=== PATIENT | female | born 1985 | race Two or more races ===

== ENCOUNTER → 2025-01-19 | Outpatient (CLI) | payer OTHER, SELFPAY ==
--- NOTE | 2025-01-19 10:30 | XR_ITS ---
Examination: Screening digital mammography, bilateral Computer aided detection 3-D breast Tomosynthesis, bilateral Date and time of exam: January 19, 2025 at 1015 hours Compared to mammograms dating to December 29, 2019 Indication: Screening Technique: Nonmagnified MLO, CC views of the breasts to been obtained, reconstructed from 3-D Tomosynthesis images. R2 computer aided detection program utilized for evaluation of suspicious masses and/or abnormal calcifications. 3-D Tomosynthesis images obtained. Findings: The breasts are heterogeneously dense, which may obscure small masses Circumscribed 28 mm 31 mm nodules upper outer left breast which may represent cysts Impression: BI-RADS Category 0: Incomplete: Need additional imaging evaluation Recommend left breast sonography follow-up to confirm cyst in the upper outer left breast
== END | disposition home or self-care (01) ==
LOC: CDIM 10:04
PROVIDERS: Referring Provider Nurse Practitioner Family; Visit Provider Nurse Practitioner Family
DX: Z12.31 Encounter for screening mammogram for malignant neoplasm of breast (principal); R92.8 Other abnormal and inconclusive findings on diagnostic imaging of breast
CPT/HCPCS: 77063; 77067

== ENCOUNTER → 2025-01-30 | Outpatient (CLI) | payer OTHER, SELFPAY ==
--- NOTE | 2025-01-30 13:30 | XR_ITS ---
Examination: Breast ultrasound, unilateral, left Date and time of exam: January 30, 2025 1350 hours INDICATIONS: Mammogram January 19, 2025 28 mm 31 mm nodules upper outer left breast, circumscribed Technique: Real-time cristobal scale ultrasonographic imaging performed left breast including all 4 quadrants as well as nipple retroareolar and axillary region. Findings: 3:00 cyst 3.4 x 3.3 cm 3:00 cyst 3.9 x 3.6 cm Retroareolar cyst 2.1 x 2.2 cm Smaller cysts No solid nodules IMPRESSION: BI-RADS Category 2: Benign findings likely accounting for the mammographic nodules
== END | disposition home or self-care (01) ==
PROVIDERS: PCP Physician Assistant; Referring Provider Physician Assistant; Visit Provider Physician Assistant
DX: R92.8 Other abnormal and inconclusive findings on diagnostic imaging of breast (principal)
CPT/HCPCS: 76641